=== PATIENT | female | born 1955 | race Two or more races ===

== ENCOUNTER 2024-10-03 17:40 | Inpatient (IN) | payer OTHER ==
[~2024-10-03] VITALS: Ht 170.2 cm; Wt 73.5 kg
[2024-10-03] MEDS: IV NORMAL SALINE 1000 ML BAG IV ONE ×2 (18:23→23:20)
[2024-10-03] MEDS: IV NS 1000 ML 1,000 ML IV ONE (18:42)
[2024-10-03] MEDS ORDERED: ASPIRIN 81 MG TAB.CHEW ONE (18:44)
[2024-10-03] MEDS ORDERED: ONDANSETRON 4 MG/2 ML VIAL ONE (18:44)
[2024-10-03] MEDS: ONDANSETRON 4 MG/2 ML VIAL IV ONE (18:50)
[2024-10-03] MEDS: ASPIRIN 81 MG TAB.CHEW PO ONE (18:50)
[2024-10-03 19:37] LABS: BASOPHILS % (AUTO) 0.4 % (0.0-2.0); EOSINOPHILS # (AUTO) 0.1 K/uL (0.0-0.7); EOSINOPHILS % (AUTO) 2.6 % (0.0-7.0); HEMATOCRIT 35.4 % (31.2-41.9); HEMOGLOBIN 11.9 g/dL (10.9-14.3); LYMPHOCYTES # (AUTO) 1.1 K/uL (0.8-4.8); LYMPHOCYTES % (AUTO) 20.1 % (20.5-51.5); MEAN CORPUSCULAR HGB CONC 34 g/dL (32.3-35.6); MEAN CORPUSCULAR VOLUME 92.1 fL (75.5-95.3); MONOCYTES # (AUTO) 0.4 K/uL (0.1-1.30); MONOCYTES % (AUTO) 7.4 % (0.0-11.0); NEUTROPHILS # (AUTO) 3.7 K/uL (1.8-8.9); NEUTROPHILS % (AUTO) 69.5 % (38.5-71.5); PLATELET COUNT (AUTO) 241 K/uL (179-408); RED BLOOD CELL COUNT(AUTO) 3.85 MIL/uL (3.63-4.92); RED CELL DISTRIBUTION WIDTH 13.2 % (12.3-17.7); WHITE BLOOD COUNT (AUTO) 5.3 K/uL (3.8-11.8)
[2024-10-03 19:38] LABS: DIFFERENTIAL COMMENT 1
[2024-10-03 19:40] LABS: CALCIUM 7.8 mg/dL (8.5-10.1); CARBON DIOXIDE 25 mmol/L (21-32); CHLORIDE 107 mmol/L (98-107); CREATININE 0.8 mg/dL (0.6-1.3); GLUCOSE 115 mg/dL (74-106); POTASSIUM 3.9 mmol/L (3.5-5.1); SODIUM SERUM 138 mmol/L (136-145); UREA NITROGEN, BLOOD 11 mg/dL (7-18)
[2024-10-03 19:47] LABS: ALANINE AMINOTRANSFERASE 51 U/L (14-59); ALBUMIN 2.7 g/dL (3.4-5.0); ALKALINE PHOSPHATASE 135 U/L (50-136); ASPARTATE AMINOTRANSFERASE 43 U/L (15-37); BILIRUBIN,DIRECT 0.1 mg/dL (0.0-0.2); BILIRUBIN,TOTAL 0.2 mg/dL (0.2-1.0); TOTAL PROTEIN, SERUM 6.8 g/dL (6.4-8.2)
[2024-10-03 19:51] LABS: ETHANOL < 3 MG/DL (0-10)
[2024-10-03] MEDS ORDERED: IOHEXOL 300MG/ML 100 ML INFUS..BTL ONE (20:03)
[2024-10-03 20:08] LABS: *BILIRUBIN,URIN NEGATIVE (NEGATIVE); *CLARITY,URINE CLEAR (CLEAR); *KETONES,URINE NEGATIVE (NEGATIVE); *PROTEIN,URINE NEGATIVE (NEGATIVE); *UROBILINOGEN,URINE 0.2 E.U./dl (NORMAL); LEUKOCYTE ESTERASE ,URINE TRACE (NEGATIVE); NITRITE, URINE NEGATIVE (NEGATIVE); UGLUCOSE NEGATIVE (NEGATIVE)
[2024-10-03 20:09] LABS: *BLOOD, URINE TRACE (NEGATIVE); *COLOR,URINE LIGHT YELLOW (YELLOW)
[2024-10-03 20:16] LABS: RBC,URINE 0-3 /HPF (0-3)
[2024-10-03 20:17] LABS: *AMPHETAMINE, URINE NEGATIVE (NEGATIVE); *BARBITURATE, URINE NEGATIVE (NEGATIVE); *BENZODIAZEPINE, URINE NEGATIVE (NEGATIVE); *CANNABINOID, URINE NEGATIVE (NEGATIVE); *COCCAINE, URINE NEGATIVE (NEGATIVE); *OPIATE, URINE NEGATIVE (NEGATIVE); *PHENCYCLIDINE SCREEN,URINE NEGATIVE (NEGATIVE); BACTERIA,URINE MODERATE /HPF (NONE SEEN); FENTANYL, URINE NEGATIVE (NEGATIVE); SQUAMOUS EPITHELIAL CELL,UR FEW /HPF (NONE SEEN)
[2024-10-03] MEDS ORDERED: REMEDY ESSENTIAL ZINC PASTE 113 GM TP PRN (21:45)
[2024-10-03] MEDS ORDERED: ACETAMINOPHEN 325 MG TABLET PO PRN (21:45)
[2024-10-03] MEDS: IV NS 1000 ML 1,000 ML IV PRN (23:24)
[2024-10-04] VITALS (8 sets, daily range): BP systolic 112–161; BP diastolic 65–94; TEMP 97.8–99.1; O2SAT 97–100
[2024-10-04 07:46] LABS: BASOPHILS % (AUTO) 0.3 % (0.0-2.0); EOSINOPHILS # (AUTO) 0.2 K/uL (0.0-0.7); EOSINOPHILS % (AUTO) 2.9 % (0.0-7.0); HEMATOCRIT 34.2 % (31.2-41.9); HEMOGLOBIN 11.4 g/dL (10.9-14.3); LYMPHOCYTES # (AUTO) 2.1 K/uL (0.8-4.8); LYMPHOCYTES % (AUTO) 39.7 % (20.5-51.5); MEAN CORPUSCULAR HEMOGLOBIN 31.4 uug (24.7-32.8); MEAN CORPUSCULAR HGB CONC 34 g/dL (32.3-35.6); MEAN CORPUSCULAR VOLUME 93.9 fL (75.5-95.3); MONOCYTES # (AUTO) 0.4 K/uL (0.1-1.30); MONOCYTES % (AUTO) 7.2 % (0.0-11.0); NEUTROPHILS # (AUTO) 2.6 K/uL (1.8-8.9); NEUTROPHILS % (AUTO) 49.9 % (38.5-71.5); PLATELET COUNT (AUTO) 234 K/uL (179-408); RED BLOOD CELL COUNT(AUTO) 3.64 MIL/uL (3.63-4.92); RED CELL DISTRIBUTION WIDTH 13.1 % (12.3-17.7); WHITE BLOOD COUNT (AUTO) 5.3 K/uL (3.8-11.8)
[2024-10-04 07:55] LABS: DIFFERENTIAL COMMENT 1
[2024-10-04 07:59] LABS: CREATININE 0.7 mg/dL (0.6-1.3); PHOSPHOROUS 3.5 mg/dL (2.5-4.9); POTASSIUM 3.7 mmol/L (3.5-5.1)
[2024-10-04] MEDS: CEphaleXIN 500 MG CAPSULE PO SCH (08:02)
[2024-10-04] MEDS: ENOXAPARIN SODIUM 40 MG/0.4 ML DISP.SYRIN SQ SCH (08:03)
[2024-10-05 00:04] VITALS: BP 14/72; TEMP 98.9; O2SAT 97
[2024-10-05 00:09] VITALS: BP 140/74; TEMP 98.9; O2SAT 97
[2024-10-05 04:39] VITALS: BP 141/92; TEMP 99.4; O2SAT 98
[2024-10-05 04:42] VITALS: BP 147/92; TEMP 99.4; O2SAT 98
[2024-10-05 07:21] LABS: THYROID STIMULATING HORMONE 1.016 mIU/mL (0.358-3.740)
[2024-10-05 07:30] VITALS: BP 137/84; TEMP 97.8; O2SAT 98
[2024-10-05] MEDS ORDERED: CEPH500C2 PO (11:27)
[2024-10-05 11:32] VITALS: BP 160/86; TEMP 98; O2SAT 99
[2024-10-05] MEDS: ONDANSETRON 4 MG/2 ML VIAL IV PRN (12:17)
== END 2024-10-05 12:35 | disposition other institution (70) | DRG 74 ==
LOC: ER 17:40 → TELE3 22:28 → MEDSURG3 10-05 09:55
PROVIDERS: ADMIT Nurse Practitioner Acute Care; ATTEND Student in an Organized Health Care Education/Training Program
PROC: 06HY33Z Insertion of Infusion Device into Lower Vein, Percutaneous Approach (ICD-10-PCS; principal; 2024-10-03)
DX: G90.89 Other disorders of autonomic nervous system (principal); N39.0 Urinary tract infection, site not specified; F15.10 Other stimulant abuse, uncomplicated; F17.210 Nicotine dependence, cigarettes, uncomplicated; Z71.6 Tobacco abuse counseling
CPT/HCPCS: 36415; 70450; 71045; 71250; 83605; 83735; 83921; 84100; 84443; 84484; 85025; 85730; 86850; 86900; 86901; 87077; 87086; 93307; G0378; G0480; J1650; J2405; J7040; Q9967